=== PATIENT | male | born 1950 | race Two or more races ===

== ENCOUNTER 2022-01-09 16:51 | Emergency (ER) | payer OTHER ==
[~2022-01-09] VITALS: Ht 165.1 cm; Wt 67.1 kg
[2022-01-09] MEDS ORDERED: PEPCID AC20 MG PO (17:10)
[2022-01-09] MEDS ORDERED: PREVACID15 M1 PO (17:10)
[2022-01-09] MEDS ORDERED: CRESTOR5 MG PO (17:10)
== END 2022-01-09 19:48 | disposition home or self-care (01) ==
LOC: ER 16:51
DX: S62.604A Fracture of unspecified phalanx of right ring finger, initial encounter for closed fracture (principal); S62.652A Nondisplaced fracture of middle phalanx of right middle finger, initial encounter for closed fracture; W18.39XA Other fall on same level, initial encounter; Y93.9 Activity, unspecified; Y92.018 Other place in single-family (private) house as the place of occurrence of the external cause; Y99.9 Unspecified external cause status

== ENCOUNTER 2022-01-17 08:40 | Outpatient (CLI) | payer OTHER ==
[~2022-01-17 08:40] MED LIST: CRESTOR5 MG PO; PEPCID AC20 MG PO; PREVACID15 M1 PO
== END 2022-01-17 09:20 | disposition home or self-care (01) ==
LOC: ASH CLINIC 08:40
PROVIDERS: ATTEND Internal Medicine Infectious Disease
DX: U07.1 COVID-19 (principal)

== ENCOUNTER 2022-02-04 13:35 | Outpatient (CLI) | payer OTHER | END 2022-02-04 13:42 | disposition home or self-care (01) | LOC: RAD 13:35 | PROVIDERS: ATTEND Orthopaedic Surgery | DX: M79.641 Pain in right hand (principal) ==